=== PATIENT | female | born 1975 | race Caucasian/White ===

== ENCOUNTER 2017-05-26 07:07 | Day surgery (SDC) | payer OTHER ==
[~2017-05-26 07:07] MED LIST: CEFAZOLIN 1 GM INJ; DEXAMETHASONE 4 MG/ML 1 ML INJ; METOCLOPRAMIDE 10 MG INJ; ONDANSETRON 4 MG INJ
[2017-05-26] MEDS ORDERED: LIDOCAINE 2% (SDV) 5 ML INJ (08:31)
[2017-05-26] MEDS ORDERED: PROPOFOL 20 ML (08:31)
[2017-05-26] MEDS ORDERED: FENTAnyl 50 MCG/ML VIAL (08:32)
[2017-05-26] MEDS ORDERED: MIDAZOLAM 1 MG/ML 2 ML INJ (08:32)
[2017-05-26] MEDS ORDERED: CEFAZOLIN 2 GM/50 ML (PMX) 50 ML IVPB (09:00)
[2017-05-26] MEDS ORDERED: KETOROLAC 30 MG INJ IM (10:24)
[2017-05-26] MEDS ORDERED: DIPHENHYDRAMINE 50 MG INJ IV (11:00)
[2017-05-26] MEDS ORDERED: KETOROLAC 30 MG INJ IV (11:00)
[2017-05-26] MEDS ORDERED: FENTAnyl 50 MCG/ML VIAL IV ×2 (11:00)
[2017-05-26] MEDS ORDERED: METOCLOPRAMIDE 10 MG INJ IV (11:00)
[2017-05-26] MEDS ORDERED: ONDANSETRON 4 MG INJ IV (11:00)
[2017-05-26] MEDS ORDERED: HYDROmorphONE (0.2 MG/ML) 10ML SYG IV (11:00)
[2017-05-26] MEDS ORDERED: MEPERIDINE 25 MG INJ IV (11:00)
[2017-05-26] MEDS: KETOROLAC 30 MG INJ IV (11:03)
[2017-05-26] MEDS: HYDROmorphONE (0.2 MG/ML) 10ML SYG IV (11:03)
== END 2017-05-26 12:15 | disposition home or self-care (01) ==
LOC: SDS 07:07
DX: N92.1 Excessive and frequent menstruation with irregular cycle (principal); D25.9 Leiomyoma of uterus, unspecified; D64.9 Anemia, unspecified
CPT/HCPCS: 58558; 84703; 88305